=== PATIENT | female | born 2000 | race American Indian/Alaskan Native ===

== ENCOUNTER 2020-06-20 02:21 | Outpatient (CLI) | payer MEDICAID ==
[2020-06-20 02:42] VITALS: BP 107/67
--- NOTE | 2020-06-20 04:57 | Ultrasound Report ---
ULTRASOUND BIOPHYSICAL PROFILE INDICATION: wellbeing. COMPARISON: None available. FINDINGS: BREATHING MOVEMENT = 2 GROSS BODY MOVEMENT = 2 TONE = 2 QUALITATIVE AMNIOTIC FLUID VOLUME = 2 TOTAL BIOPHYSICAL SCORE = 11/07 AMNIOTIC FLUID INDEX (cm) = 10.6 PRESENTATION: Cephalic. HEART RATE (beats per minute): 155 IMPRESSION: 1. biophysical profile = 11/07 Signer Name: Ron Ang MD Signed: 06/20/2020 4:53 AM Workstation Name: [id number]
[2020-06-20] MEDS ORDERED: LACTATED RINGERS 500 ML IV SCH (05:00)
[2020-06-20] MEDS ORDERED: D5W/LACTATED RINGERS 1,000 ML IV SCH (05:00)
[2020-06-20] MEDS ORDERED: LACTATED RINGERS 1,000 ML IV SCH (06:05)
[2020-06-20 06:40] LABS: Amphetamine Screen,Urine PRESUMPTIVE NEGATIVE; Benzodiazepines Screen,Urine PRESUMPTIVE NEGATIVE; Cannabinoid Screen,Urine PRESUMPTIVE NEGATIVE; Cocaine Screen,Urine PRESUMPTIVE NEGATIVE; Methadone Screen,Urine PRESUMPTIVE NEGATIVE; Opiate Screen,Urine PRESUMPTIVE NEGATIVE
[2020-06-20] MEDS ORDERED: LACTATED RINGERS 1,000 ML ONE (07:20)
== END 2020-06-20 07:54 | disposition home or self-care (01) ==
LOC: TRG 02:21 → APU 02:24 → TRG 07:54
PROVIDERS: ATTEND Obstetrics & Gynecology
DX: O62.9 Abnormality of forces of labor, unspecified (principal); Z3A.38 38 weeks gestation of pregnancy; Z87.891 Personal history of nicotine dependence
CPT/HCPCS: 59025; 76815; 76819; 80307; 96360; 96361; J7121

== ENCOUNTER 2020-06-24 07:58 | Inpatient (IN) | payer MEDICAID ==
--- NOTE | 2020-06-24 08:36 | History and Physical Report ---
History of Present Illness Date of examination: 06/24/20 (ROM @ 0630 this AM) Chief complaint: my water broke History of present illness: EDC Confirmation: 06/29/2020 Gestational Age: 39 2/7 weeks Past History : 2 Term Births: 0 Premature Births: 0 Living Children: 0 Para: 0 Mult. Births: 0 Prev : 0 Prev. attempt? 0 Aborta: 1 Elect. Ab: 1 Spont. Ab: 0 Ectopics: 0 # 1 Delivery type: EAB Past Medical History: Negative Past Medical History Past Surgical History: ear tubes Past Medical History Surgery (Non-social media marketer): ear tubes Family Hx: lupus; MGM, sister Social Hx: Single denies ETOH/Drugs/Smoking Dogs Infection History Hx of STD: none HIV Risk Eval: low risk Hepatitis B Risk Eval: low risk Personal hx. of genital herpes: no Partner hx. of genital herpes: no Rash, Viral, or Febrile illness since last LMP? no Varicella/Chicken Pox Status: Unknown Genetic History Congenital Heart Defect: Mom: no Dad: no Loc Disease: Mom: no Dad: no Thalassemia Mom: no Dad: no Neural Tube Defect Mom: no Dad: no Down's Syndrome Mom: no Dad: no Bo-Sachs Mom: no Dad: no Sickle Cell Disease/Trait Mom: no Dad: no Hemophilia Mom: no Dad: no Muscular Dystrophy Mom: no Dad: no Cystic Fibrosis Mom: no Dad: no Keenan Chorea Mom: no Dad: no Mental Retardation Mom: no Dad: no Fragile X Mom: no Dad: no Other Genetic/Chromosomal Disorder Mom: no Dad: no Child w/other defect Mom: no Dad: no Enviromental Exposures Xray Exposure: no Medication, drug, or alcohol use since LMP: no Chemical/Other Exposure: no Exposure to Cat Liter: no Hx of Parvovirus (Fifth Disease): no Occupational Exposure to Children: none Active Medications (reviewed today): None Current Allergies (reviewed today): No known allergies Past History - Obstetrical History Expected Date of Delivery: 06/29/20 Actual Gestation: 39 Week(s) 2 Day(s) : 2 Para: 0 Hx # Term Pregnancies: 0 Number of Pregnancies: 0 Spontaneous Abortions: 0 Induced : 1 Number of Living Children: 0 Medications and Allergies Allergies Allergy/AdvReac Type Severity Reaction Status Date / Time No Known Allergies Allergy Verified 02/02/17 07:16 Home Medications Medication Instructions Recorded Confirmed Last Taken Type Fluconazole (Nf) [Diflucan TAB] 150 mg PO ONCE #1 tablet 02/02/17 Unknown Rx Ibuprofen 400 mg PO TID PRN #20 tablet 02/02/17 Unknown Rx Ondansetron [Zofran TAB] 4 mg PO Q8HR PRN #4 tablet 02/02/17 Unknown Rx cephALEXin [Keflex] 500 mg PO BID #14 capsule 02/02/17 Unknown Rx Review of Systems All systems: negative - Vital Signs Vital signs: Vital Signs Pulse Ox 80 L 06/20/20 07:45 Temp Pulse Resp BP Pulse Ox 98.4 F 96 H 15 114/68 100 06/24/20 08:15 06/24/20 08:29 06/24/20 08:15 06/24/20 08:19 06/24/20 08:29 - Physical Exam Breasts: Cardiovascular: Regular rate, Normal S1, Normal S2 Lungs: Positive: Normal air movement Abdomen: Positive: normal appearance, soft, normal bowel sounds. Negative: distention, tenderness Genitourinary (Female): Positive: normal external genitalia Vulva: both: normal Vagina: Positive: normal moisture. Negative: discharge Cervix: Negative: lesion, discharge Uterus: Positive: normal size, normal contour Adnexa: both: normal Anus/Rectum: Positive: normal perianal skin, heme negative. Negative: rectal mass, hemorrhoids Extremities: Deep Tendon Reflex Grade: Normal +2 - Obstetrical FHR: category 1 Uterine Contraction Monitor Mode: External Cervical Dilatation: 1 (resource specialist [email or web address]) Cervical Effacement Percentage: 60 station: -2 Uterine Contraction Pattern: Irregular Uterine Tone Measurement Phase: Resting Uterine Contraction Intensity: Mild Results Result Diagrams: 06/24/20 08:45 All other labs normal. GBS Negative HBsAg Screen Negative Negative *1 RPR Non Reactive Non Reactive *2 Rubella Antibodies, IgG 4.28 index Immune >0.99 *3 Non-immune <0.90 Equivocal 0.90 - 0.99 Immune >0.99 ABO Grouping O *4 Rh Factor Positive *5 Please note: Prior records for this patient's ABO / Rh type are not available for additional verification. Antibody Screen Negative Negative *6 WBC 7.8 x10E3/uL 3.4-10.8 *7 RBC [L] 3.55 x10E6/uL 3.77-5.28 *8 Hemoglobin 11.3 g/dL 11.1-15.9 *9 Hematocrit 34.3 % 34.0-46.6 *10 MCV 97 fL 79-97 *11 MCH 31.8 pg 26.6-33.0 *12 MCHC 32.9 g/dL 31.5-35.7 *13 RDW 12.3 % 11.7-15.4 *14 Platelets 294 x10E3/uL 150-450 *15 Neutrophils 68 % Not Estab. *16 Lymphs 25 % Not Estab. *17 Monocytes 7 % Not Estab. *18 Eos 0 % Not Estab. *19 Basos 0 % Not Estab. *20 ! Immature Cells <No Reported Value> *21 Neutrophils (Absolute) 5.3 x10E3/uL 1.4-7.0 *22 Lymphs (Absolute) 1.9 x10E3/uL 0.7-3.1 *23 Monocytes(Absolute) 0.5 x10E3/uL 0.1-0.9 *24 Eos (Absolute) 0.0 x10E3/uL 0.0-0.4 *25 Baso (Absolute) 0.0 x10E3/uL 0.0-0.2 *26 ! Immature Granulocytes 0 % Not Estab. *27 ! Immature Grans (Abs) 0.0 x10E3/uL 0.0-0.1 *28 ! NRBC <No Reported Value> *29 Hematology Comments: <No Reported Value> *30 Tests: (2) AFP Tetra ([id number]) ! Results Report *31 ! Test Results: *Screen Negative* *32 ! Gest. Age on Collection Date 15.3 WEEKS *33 ! Gestat. Age Based On Ultrasound *34 15.3 on 01/08/2020 Tests: (3) HB Solu + Rflx Fra (275737) Hemoglobin (Hgb) Solubility Negative Negative *55 Tests: (4) HIV Ag/Ab with Reflex ([id number]) HIV Screen 4th Generation wRfx Non Reactive Non Reactive *56 Tests: (5) HCV Ab w/Rflx to Verification ([id number]) ! HCV Ab <0.1 s/co ratio 0.0-0.9 *57 Tests: (6) Comment: ([id number]) ! Comment: [facility] *58 Non reactive HCV antibody screen is consistent with no HCV infection, unless recent infection is suspected or other evidence exists to indicate HCV infection. Tests: (7) Urine Culture, Routine ([id number]) Urine Culture, Routine Final report *59 Tests: (8) Result ([id number]) ! Result 1 No growth *60 Assessment and Plan 19yo @ 39 weeks SROM clear fluid GBS negative All orders in EMR - Patient Problems (1) Spontaneous rupture of membranes Onset Date: ~06/24/20 Current Visit: Yes Status: Acute Plan to address problem: pt states ROM this AM 0645 Clear fluid (2) 39 weeks gestation of Onset Date: ~06/24/20 Current Visit: Yes Status: Acute
[2020-06-24] MEDS ORDERED: ACETAMINOPHEN 325 MG TAB PO PRN (09:00)
[2020-06-24] MEDS ORDERED: ePHEDrine SULFATE 50 MG/1 ML INJ IV PRN (09:00)
[2020-06-24] MEDS ORDERED: LACTATED RINGERS 1,000 ML IV SCH (09:00)
[2020-06-24] MEDS ORDERED: fentaNYL 100 MCG/2 ML INJ IV PRN (09:00)
[2020-06-24] MEDS ORDERED: TERBUTALINE 1 MG/1 ML INJ SUB-Q PRN (09:00)
[2020-06-24] MEDS ORDERED: ONDANSETRON 4 MG/2 ML INJ IV PRN (09:00)
[2020-06-24] MEDS ORDERED: LIDOCAINE (2%) 20 MG/1 ML VIAL 20 ML MDV INFILTRATI SCH (09:00)
[2020-06-24] MEDS ORDERED: OXYTOCIN DRIP 30 UNITS/500 ML BAG IV SCH ×2 (09:00)
[2020-06-24] MEDS ORDERED: MINERAL OIL 30 ML ORAL LIQD PO PRN (09:00)
[2020-06-24 09:15] LABS: Hematocrit 29.1 % (30.3-42.9); Hemoglobin 9.6 gm/dl (10.1-14.3); Mean Corpuscular HGB Conc 33 % (30-34); Mean Corpuscular Volume 86 fl (79-97); Platelet Count 203 K/mm3 (140-440); Red Blood Count 3.39 M/mm3 (3.65-5.03); Red Cell Distribution Width 15.8 % (13.2-15.2)
--- NOTE | 2020-06-24 22:11 | Progress Note ---
Assessment and Plan - Patient Problems (1) 39 weeks gestation of Onset Date: ~06/24/20 Current Visit: Yes Status: Acute (2) Spontaneous rupture of membranes Onset Date: ~06/24/20 Current Visit: Yes Status: Acute Plan to address problem: still not in active labor but appears to be progressing Epidural, continue pitocin and expectant management Question encouraged and answered, she voiced understanding and agrees with POC Subjective - Subjective Date of service: 06/24/20 Principal diagnosis: SROM, early labor Patient reports: contractions Objective - Vital Signs Vital Signs: Vital Signs - 12hr 06/24/20 06/24/20 06/24/20 14:32 18:20 21:19 Temperature 98.3 F Pulse Rate 93 H 88 Blood Pressure 98/54 110/51 - Exam Breasts: deferred Cardiovascular: Regular rate Lungs: Normal air movement Abdomen: Absent: tenderness Vulva: both: normal Uterus: Present: fundal height above umbilicus. Absent: tenderness FHR: category 1 Uterine Contraction Monitor Mode: External Cervical Dilatation: 3 Cervical Effacement Percentage: 60 station: -2, forebag palpated Uterine Contraction Pattern: Regular Extremities: normal - Labs Labs: Abnormal Labs 06/24/20 08:45 RBC 3.39 L Hgb 9.6 L Hct 29.1 L RDW 15.8 H Laboratory Results - last 24 hr 06/24/20 06/24/20 06/24/20 08:45 08:45 09:00 WBC 8.1 RBC 3.39 L Hgb 9.6 L Hct 29.1 L MCV 86 MCH 28 MCHC 33 RDW 15.8 H Plt Count 203 Syphilis IgG Antibody Nonreactive Coronavirus (PCR) Blood Type O POSITIVE Antibody Screen Negative 06/24/20 09:30 WBC RBC Hgb Hct MCV MCH MCHC RDW Plt Count Syphilis IgG Antibody Coronavirus (PCR) Negative Blood Type Antibody Screen
[2020-06-25] MEDS ORDERED: fentaNYL-BUPIV 2 MCG/ML-0.125% 200 MCG/100 ML BAG EPIDURAL ONE (00:38)
[2020-06-25] MEDS ORDERED: AMPICILLIN/NS 2 GM/100 ML 2 GM/100 ML BAG IV ONE (01:07)
--- NOTE | 2020-06-25 01:07 | Progress Note ---
Assessment and Plan - Patient Problems (1) 39 weeks gestation of Onset Date: ~06/24/20 Current Visit: Yes Status: Acute Plan to address problem: Continue expectant management will start Ampicillin empirically for prolonged ROM (2) Spontaneous rupture of membranes Onset Date: ~06/24/20 Current Visit: Yes Status: Acute Subjective - Subjective Date of service: 06/25/20 Principal diagnosis: SROM, early labor Patient reports: contractions, no new complaints Objective - Vital Signs Vital Signs: Vital Signs - 12hr 06/24/20 06/24/20 06/24/20 14:32 18:20 21:19 Temperature 98.3 F Pulse Rate 93 H 88 Respiratory Rate Blood Pressure 98/54 110/51 O2 Sat by Pulse Oximetry 06/24/20 06/24/20 06/24/20 22:04 22:20 23:04 Temperature 98.3 F Pulse Rate Respiratory 16 18 16 Rate Blood Pressure O2 Sat by Pulse Oximetry 06/24/20 06/24/20 06/24/20 23:05 23:06 23:08 Temperature Pulse Rate 110 H 112 H 88 Respiratory Rate Blood Pressure 104/55 O2 Sat by Pulse 99 94 Oximetry 06/24/20 06/24/20 06/24/20 23:10 23:15 23:20 Temperature Pulse Rate 84 81 87 Respiratory Rate Blood Pressure O2 Sat by Pulse 100 100 100 Oximetry 06/24/20 06/24/20 06/24/20 23:23 23:24 23:25 Temperature Pulse Rate 71 68 69 Respiratory Rate Blood Pressure 213/83 109/66 O2 Sat by Pulse 100 Oximetry 06/24/20 06/24/20 06/24/20 23:26 23:30 23:34 Temperature Pulse Rate 62 61 70 Respiratory Rate Blood Pressure 110/71 113/52 O2 Sat by Pulse 100 Oximetry 06/24/20 06/24/20 06/24/20 23:35 23:40 23:42 Temperature Pulse Rate 78 79 61 Respiratory Rate Blood Pressure 101/55 108/57 O2 Sat by Pulse 96 100 Oximetry 06/24/20 06/24/20 06/24/20 23:45 23:46 23:50 Temperature Pulse Rate 63 62 71 Respiratory Rate Blood Pressure 118/64 O2 Sat by Pulse 99 99 Oximetry 06/24/20 06/24/20 06/24/20 23:51 23:55 23:57 Temperature Pulse Rate 74 66 71 Respiratory Rate Blood Pressure 119/63 123/63 O2 Sat by Pulse 99 Oximetry 06/25/20 06/25/20 06/25/20 00:00 00:02 00:05 Temperature Pulse Rate 69 69 100 H Respiratory Rate Blood Pressure 124/63 O2 Sat by Pulse 98 99 Oximetry 06/25/20 06/25/20 06/25/20 00:06 00:10 00:12 Temperature Pulse Rate 102 H 70 63 Respiratory Rate Blood Pressure 114/56 114/64 O2 Sat by Pulse 99 Oximetry 06/25/20 06/25/20 06/25/20 00:15 00:20 00:25 Temperature Pulse Rate 75 62 63 Respiratory Rate Blood Pressure O2 Sat by Pulse 100 100 100 Oximetry 06/25/20 06/25/20 06/25/20 00:29 00:30 00:35 Temperature Pulse Rate 59 L 76 94 H Respiratory Rate Blood Pressure 106/59 O2 Sat by Pulse 100 100 Oximetry 06/25/20 06/25/20 06/25/20 00:40 00:44 00:45 Temperature Pulse Rate 69 65 66 Respiratory 18 Rate Blood Pressure 106/66 O2 Sat by Pulse 100 100 Oximetry 06/25/20 06/25/20 06/25/20 00:50 00:55 00:58 Temperature Pulse Rate 67 68 88 Respiratory Rate Blood Pressure 126/80 O2 Sat by Pulse 100 100 Oximetry 06/25/20 01:00 Temperature Pulse Rate 83 Respiratory Rate Blood Pressure O2 Sat by Pulse 100 Oximetry - Exam Breasts: deferred Cardiovascular: Regular rate Lungs: Normal air movement Abdomen: Absent: tenderness Vulva: both: normal Uterus: Present: fundal height above umbilicus. Absent: tenderness FHR: category 2 (early decels noted, +accel with scalp stim. ISE placed good variability) Uterine Contraction Monitor Mode: External Cervical Dilatation: 4 Cervical Effacement Percentage: 60 station: -1, forebag ROM, mec noted. Verbal consent obtained ISE placed w/o difficul Uterine Contraction Frequency (min): 2-3 mintes Uterine Contraction Pattern: Regular - Labs Labs: Abnormal Labs 06/24/20 08:45 RBC 3.39 L Hgb 9.6 L Hct 29.1 L RDW 15.8 H Laboratory Results - last 24 hr 06/24/20 06/24/20 06/24/20 08:45 08:45 09:00 WBC 8.1 RBC 3.39 L Hgb 9.6 L Hct 29.1 L MCV 86 MCH 28 MCHC 33 RDW 15.8 H Plt Count 203 Syphilis IgG Antibody Nonreactive Coronavirus (PCR) Blood Type O POSITIVE Antibody Screen Negative 06/24/20 09:30 WBC RBC Hgb Hct MCV MCH MCHC RDW Plt Count Syphilis IgG Antibody Coronavirus (PCR) Negative Blood Type Antibody Screen
[2020-06-25] MEDS ORDERED: BICITRA ORAL LIQD 30ML ONE (02:59)
[2020-06-25] MEDS ORDERED: METOCLOPRAMIDE 10 MG/2 ML INJ ONE (02:59)
[2020-06-25] MEDS ORDERED: FAMOTIDINE 20 MG/2 ML INJ IV ONE (03:00)
[2020-06-25] MEDS ORDERED: METHYLERGONOVINE MALEATE 0.2 MG/ML VIAL IM PRN (03:22)
[2020-06-25] MEDS ORDERED: miSOPROStol 200 MCG TAB PR PRN (03:22)
[2020-06-25] MEDS ORDERED: CARBOPROST TROMETHAMINE 250 MCG/1 ML INJ IM PRN (03:22)
[2020-06-25] MEDS ORDERED: DIPHENOXYLATE/ATROPINE TAB PO PRN (03:22)
--- NOTE | 2020-06-25 03:22 | Progress Note ---
Assessment and Plan - Patient Problems (1) 39 weeks gestation of Onset Date: ~06/24/20 Current Visit: Yes Status: Acute (2) Spontaneous rupture of membranes Onset Date: ~06/24/20 Current Visit: Yes Status: Acute (3) Arrest of dilation, delivered, current hospitalization Current Visit: Yes Status: Acute Plan to address problem: intermittent late decels Options referred will proceed with c/s delivery. Risk associated with delivery were discussed, including but not limited to, bleeding that may require blood transfusion, infection that may be life threatening, injury to adjacent organs specifically bowel or bladder that may require further surgeries, or major vascular injury. She was also informed that when she has had a delivery she may require repeat deliveries for all subsequent pregnancies. Questions were encouraged and answered, consents were reviewed and signed. Patient voiced understanding and desires to proceed with delivery. Subjective - Subjective Date of service: 06/25/20 Principal diagnosis: SROM, early labor, failure to dilate, occasional late decel Patient reports: contractions, no new complaints Objective - Vital Signs Vital Signs: Vital Signs - 12hr 06/24/20 06/24/20 06/24/20 18:20 21:19 22:04 Temperature 98.3 F Pulse Rate 88 Respiratory 16 Rate Blood Pressure 110/51 O2 Sat by Pulse Oximetry 06/24/20 06/24/20 06/24/20 22:20 23:04 23:05 Temperature 98.3 F Pulse Rate 110 H Respiratory 18 16 Rate Blood Pressure O2 Sat by Pulse 99 Oximetry 06/24/20 06/24/20 06/24/20 23:06 23:08 23:10 Temperature Pulse Rate 112 H 88 84 Respiratory Rate Blood Pressure 104/55 O2 Sat by Pulse 94 100 Oximetry 06/24/20 06/24/20 06/24/20 23:15 23:20 23:23 Temperature Pulse Rate 81 87 71 Respiratory Rate Blood Pressure 213/83 O2 Sat by Pulse 100 100 Oximetry 06/24/20 06/24/20 06/24/20 23:24 23:25 23:26 Temperature Pulse Rate 68 69 62 Respiratory Rate Blood Pressure 109/66 110/71 O2 Sat by Pulse 100 Oximetry 06/24/20 06/24/20 06/24/20 23:30 23:34 23:35 Temperature Pulse Rate 61 70 78 Respiratory Rate Blood Pressure 113/52 O2 Sat by Pulse 100 96 Oximetry 06/24/20 06/24/20 06/24/20 23:40 23:42 23:45 Temperature Pulse Rate 79 61 63 Respiratory Rate Blood Pressure 101/55 108/57 O2 Sat by Pulse 100 99 Oximetry 06/24/20 06/24/20 06/24/20 23:46 23:50 23:51 Temperature Pulse Rate 62 71 74 Respiratory Rate Blood Pressure 118/64 119/63 O2 Sat by Pulse 99 Oximetry 06/24/20 06/24/20 06/25/20 23:55 23:57 00:00 Temperature Pulse Rate 66 71 69 Respiratory Rate Blood Pressure 123/63 O2 Sat by Pulse 99 98 Oximetry 06/25/20 06/25/20 06/25/20 00:02 00:05 00:06 Temperature Pulse Rate 69 100 H 102 H Respiratory Rate Blood Pressure 124/63 114/56 O2 Sat by Pulse 99 Oximetry 06/25/20 06/25/20 06/25/20 00:10 00:12 00:15 Temperature Pulse Rate 70 63 75 Respiratory Rate Blood Pressure 114/64 O2 Sat by Pulse 99 100 Oximetry 06/25/20 06/25/20 06/25/20 00:20 00:25 00:29 Temperature Pulse Rate 62 63 59 L Respiratory Rate Blood Pressure 106/59 O2 Sat by Pulse 100 100 Oximetry 06/25/20 06/25/20 06/25/20 00:30 00:35 00:40 Temperature Pulse Rate 76 94 H 69 Respiratory 18 Rate Blood Pressure O2 Sat by Pulse 100 100 100 Oximetry 06/25/20 06/25/20 06/25/20 00:44 00:45 00:50 Temperature Pulse Rate 65 66 67 Respiratory Rate Blood Pressure 106/66 O2 Sat by Pulse 100 100 Oximetry 06/25/20 06/25/20 06/25/20 00:55 00:58 01:00 Temperature 97.6 F Pulse Rate 68 88 83 Respiratory 16 Rate Blood Pressure 126/80 O2 Sat by Pulse 100 100 Oximetry 06/25/20 06/25/20 06/25/20 01:05 01:10 01:15 Temperature Pulse Rate 66 64 80 Respiratory Rate Blood Pressure O2 Sat by Pulse 100 100 100 Oximetry 06/25/20 06/25/20 06/25/20 01:20 01:25 01:30 Temperature Pulse Rate 61 66 68 Respiratory Rate Blood Pressure O2 Sat by Pulse 100 100 100 Oximetry 06/25/20 06/25/20 06/25/20 01:35 01:38 01:40 Temperature Pulse Rate 68 70 70 Respiratory Rate Blood Pressure 111/63 O2 Sat by Pulse 100 100 Oximetry 06/25/20 06/25/20 06/25/20 01:45 01:50 01:55 Temperature Pulse Rate 90 66 69 Respiratory Rate Blood Pressure O2 Sat by Pulse 100 99 100 Oximetry 06/25/20 06/25/20 06/25/20 02:00 02:05 02:10 Temperature Pulse Rate 66 73 68 Respiratory Rate Blood Pressure 93/53 O2 Sat by Pulse 100 100 100 Oximetry 06/25/20 06/25/20 06/25/20 02:15 02:20 02:25 Temperature Pulse Rate 73 67 72 Respiratory Rate Blood Pressure O2 Sat by Pulse 100 100 100 Oximetry 06/25/20 06/25/20 06/25/20 02:30 02:35 02:40 Temperature Pulse Rate 82 74 82 Respiratory Rate Blood Pressure O2 Sat by Pulse 100 99 100 Oximetry 06/25/20 06/25/20 06/25/20 02:41 02:45 02:49 Temperature Pulse Rate 78 77 73 Respiratory Rate Blood Pressure 92/55 99/57 O2 Sat by Pulse 100 Oximetry 06/25/20 06/25/20 06/25/20 02:50 02:55 03:00 Temperature Pulse Rate 75 79 100 H Respiratory Rate Blood Pressure O2 Sat by Pulse 100 100 100 Oximetry 06/25/20 06/25/20 06/25/20 03:03 03:05 03:10 Temperature Pulse Rate 98 H 120 H 96 H Respiratory Rate Blood Pressure O2 Sat by Pulse 89 100 99 Oximetry - Labs Labs: Abnormal Labs 06/24/20 08:45 RBC 3.39 L Hgb 9.6 L Hct 29.1 L RDW 15.8 H Laboratory Results - last 24 hr 06/24/20 06/24/20 06/24/20 08:45 08:45 09:00 WBC 8.1 RBC 3.39 L Hgb 9.6 L Hct 29.1 L MCV 86 MCH 28 MCHC 33 RDW 15.8 H Plt Count 203 Syphilis IgG Antibody Nonreactive Coronavirus (PCR) Blood Type O POSITIVE Antibody Screen Negative 06/24/20 09:30 WBC RBC Hgb Hct MCV MCH MCHC RDW Plt Count Syphilis IgG Antibody Coronavirus (PCR) Negative Blood Type Antibody Screen
[2020-06-25] MEDS ORDERED: BUPIVACAINE/PF (0.5%) 5 MG/1 ML 30 ML VIAL INFILTRATI ONE (03:48)
[2020-06-25] MEDS ORDERED: dexAMETHasone 20 MG/5 ML VIAL ONE (03:48)
[2020-06-25] MEDS ORDERED: ONDANSETRON 4 MG/2 ML INJ ONE ×2 (03:55)
--- NOTE | 2020-06-25 04:24 | Operative Report ---
Operative Report Operative Report: Date of operation: 06/25/2020 Pre-operative diagnosis: 1. 39 1/7 weeks gestational age 2. Failure to dilate 3. Prolonged rupture of number 4. BMI 32.6 kg/m 5. Meconium stained amniotic fluid 6. Occasional late deceleration Post-operative diagnosis: 1. 39 1/7 weeks gestational age 2. Failure to dilate 3. Prolonged rupture of number 4. BMI 32.6 kg/m 5. Meconium stained amniotic fluid 6. Occasional late deceleration 7. Nuchal cord x1 Procedure name(s): Primary low transverse uterine incision Surgeon: Violetta Solis MD Health Assessment And Treatment Teacher: Regina Douglass CST Anesthesia: Epidural EBL: 700 mL Urine output: 300 mL of clear urine out at the end of the procedure Fluids: 900 mL Findings: Liveborn male infant weight 8 Lbs. 5 oz. Apgars of 8 and 9 at one and 5 minutes Procedure: Patient was taking to the operating room. Epidural l anesthesia was bolused. Patient was then prepped and draped in the usual sterile fashion Timeout was performed. Once an appropriate level of anesthesia was noted, a Pfannenstiel incision was made and extended the fascia which was incised and extended lateral direction. The overlying fascia was sharply dissected away from the underlying rectus muscles in the superior inferior direction. The midline was entered bluntly. Bladder blade was placed. Vesicouterine fold was incised with blunt dissection bladder flap was created. A transverse incision was made in the lower uterine segment and extended superolateral direction with finger fractionation. Light meconium stained fluid was noted. was delivered from the cephalic ROP position, with spontaneous cry and excellent tone. Mouth and nose bulb suctioned. Cord was do ubly clamped and cut infant was given to the resuscitation team present. Placenta was delivered. The uterus was exteriorized and cleaned of any further placental tissue and products of conception. Uterine incision was approximated using 0 Vicryl in a running interlocking stitch followed by further suture of 0 Vicryl in imbricating fashion. When hemostasis was noted the uterus was allowed back in the pelvic cavity. Pelvis was irrigated with warm normal saline. Once hemostasis was noted the rectus muscles were approximated using 0 Vicryl interrupted simple stitches 3. Once hemostasis was noted the fascia was approximated using 0 Vicryl simple running stitch. The incision was irrigated with warm saline. Once hemostasis as noted, skin was approximated using 4-0 Vicryl on a Surya needle in a subcuticular manner. Counts were correct x3. Patient tolerated the procedure well, she was taken to recovery room in stable condition.
[2020-06-25] MEDS ORDERED: ACETAMINOPHEN 500 MG TAB PO PRN (04:37)
[2020-06-25] MEDS ORDERED: AMPICILLIN/NS 1 GM/50 ML 1 GM/50 ML BAG IV SCH (06:00)
[2020-06-25] MEDS ORDERED: LANOLIN/ZINC/DIMETHICONE (LANSINOH) 7 GM TP PRN (06:47)
[2020-06-25] MEDS ORDERED: WITCH HAZEL/ GLYCERIN PAD TP PRN (06:47)
[2020-06-25] MEDS ORDERED: D5W/LACTATED RINGERS 1,000 ML IV SCH (06:47)
[2020-06-25] MEDS ORDERED: MORPHINE 2 MG/1 ML INJ IV PRN (06:47)
[2020-06-25] MEDS ORDERED: OXYTOCIN DRIP 30 UNITS/500 ML BAG IV SCH (06:47)
[2020-06-25] MEDS ORDERED: NALOXONE 0.4 MG/1 ML INJ IV PRN (06:47)
[2020-06-25] MEDS: ceFAZolin/NS 1 GM/50 ML 1 GM/50 ML BAG IV SCH ×2 (08:05→15:52)
--- NOTE | 2020-06-25 08:38 | Anesthesia Day of Surgery ---
Anesthesia Day of Surgery - Day of Surgery Patient Examined: Yes Patient H&P Reviewed: Yes Patient is NPO: Yes Beta Blockers: No Cardiac Clearance: No Pulmonary Clearance: No Mani's Test: N/A
--- NOTE | 2020-06-25 08:39 | Anesthesia Consultation ---
Anesthesia Consult and Med Hx Date of service: 06/25/20 - Airway Anesthetic Teeth Evaluation: Poor ROM Head & Neck: Adequate Mental/Hyoid Distance: Adequate Mallampati Class: Class II Intubation Access Assessment: Probably Good - Pulmonary Exam CTA: Yes - Cardiac Exam Cardiac Exam: RRR - Pre-Operative Health Status ASA Pre-Surgery Classification: ASA3 Proposed Anesthetic Plan: Epidural - Pulmonary Hx Smoking: No Hx Asthma: No Hx Respiratory Symptoms: No SOB: No COPD: No Home Oxygen Therapy: No Hx Pneumonia: No Hx Sleep Apnea: No - Cardiovascular System Hx Hypertension: No Hx Coronary Artery Disease: No Hx Heart Attack/AMI: No Hx Angina: No Hx Percutaneous Transluminal Coronary Angioplasty (PTCA): No Hx Cardia Arrhythmia: No Hx Pacemaker: No Hx Internal Defibrillator: No Hx Valvular Heart Disease: No Hx Heart Murmur: No Hx Peripheral Vascular Disease: No - Central Nervous System Hx Neuromuscular Disorder: No Hx Seizures: No CVA: No Hx Back Pain: No Hx Psychiatric Problems: No - Gastrointestinal Hx Ulcer: No Hx Gastroesophageal Reflux Disease: No - Endocrine Hx Renal Disease: No Hx End Stage Renal Disease: No Hx Cirrhosis: No Hx Liver Disease: No Hx Insulin Dependent Diabetes: No Hx Non-Insulin Dependent Diabetes: No Hx Thyroid Disease: No Hx Hypothyroidism: No Hx Hyperthyroidism: No - Hematic Hx Anemia: Yes (during pregnacy) Hx Sickle Cell Disease: No - Other Systems Hx Alcohol Use: No Hx Substance Use: No Hx Cancer: No Hx Obesity: Yes
--- NOTE | 2020-06-25 08:40 | Progress Note ---
Spinal Anesthesia Block - Spinal Anesthesia Block Performed by:: SHAYLA BALDWIN Procedure: Patient is requesting a laboring epidural for laboring pain. Patient IDed, H&P reviewed, all questions and concerns were answered, and consent was signed. Timeout was performed at bedside. Patient in sitting position. Sterile prep and drape was performed. [3] ml of 1% lidocaine skin wheal at L[3]- L [4]. 18- gauge Tuohy epidural needle was advanced to loss of resistance with saline technique 8cm. Negative CSF negative blood. Epidural catheter advanced to [12] centimeters. [NEGATIVE] Aspiration [NEGATIVE] test dose. Sterile dressing applied. Patient tolerated procedure.
--- NOTE | 2020-06-25 08:41 | Post Anesthesia Evaluation ---
- Post Anesthesia Evaluation Patient Participated: Yes Airway Patent: Yes Stable Respiratory Function: Yes Nausea/Vomiting: No Temp > 96.8F: Yes Pain Manageable: Yes Adequeate Hydration: Yes Anesthesia Complications: No Block Receding Appropriately: Yes Patient on Ventilator: No
[2020-06-25] MEDS: KETOROLAC 30 MG/1 ML INJ IV SCH ×3 (10:27→22:31)
[2020-06-25] MEDS ORDERED: KETOROLAC 30 MG/1 ML INJ ONE (14:00)
[2020-06-25 18:29] LABS: Hematocrit 26.9 % (30.3-42.9); Hemoglobin 8.6 gm/dl (10.1-14.3)
[2020-06-26] MEDS: oxyCODONE /ACETAMINOPHEN 5-325MG TAB PO PRN ×3 (05:38→18:21)
[2020-06-26] MEDS ORDERED: TETANUS,DIPH,PERTUSS(ACELL) VACCINE 0.5 ML SYRINGE IM ONE (06:00)
[2020-06-26] MEDS: FERROUS SULFATE 325 MG TAB PO SCH ×2 (12:23→22:34)
--- NOTE | 2020-06-26 12:37 | Progress Note ---
Assessment and Plan Doing well, no complaints. Plan of care discussed. Questions encouraged and answered. - Patient Problems (1) delivery delivered Current Visit: Yes Status: Acute (2) Anemia Current Visit: Yes Status: Acute Qualifiers: Other causes of anemia: acute posthemorrhagic Plan to address problem: Asymptomatic Denies lightheadedness or dizziness Will start FeSO4 (3) 39 weeks gestation of Onset Date: ~06/24/20 Current Visit: Yes Status: Resolved (4) Spontaneous rupture of membranes Onset Date: ~06/24/20 Current Visit: Yes Status: Resolved (5) Arrest of dilation, delivered, current hospitalization Current Visit: Yes Status: Resolved Subjective - Subjective Date of service: 06/26/20 Principal diagnosis: POD#1 s/p C/S FTP, prolonged ROM Interval history: Standing in room, no complaint, minimal bleeding. Patient reports: appetite normal, voiding normally, pain well controlled, flatus, ambulating normally Objective - Vital Signs Latest vital signs: Vital Signs Temp Pulse Resp BP BP Pulse Ox 06/26/20 08:58 97.5 F L 84 18 106/56 100 06/25/20 23:46 98.0 F 72 20 113/72 100 06/25/20 20:00 98.0 F 86 20 102/57 99 06/25/20 16:25 97.9 F 90 18 101/54 99 06/25/20 16:00 97.9 F 100 H 18 101/54 06/25/20 13:36 97.9 F 18 96/58 Intake and Output 06/25/20 06/26/20 06/26/20 22:59 06:59 14:59 Intake Total 360 480 240 Output Total 1200 Balance -840 480 240 Intake: Oral 360 120 240 Intake, Free Water 360 Output: Urine 1200 Indwelling Catheter 900 Void 300 Other: Total, Intake Amount 360 120 240 Total, Output Amount 300 # Voids Void 1 1 1 - Exam Breasts: Present: normal. Absent: engorged Cardiovascular: Present: Regular rate Lungs: Present: Clear to auscultation, Normal air movement Abdomen: Present: soft, normal bowel sounds. Absent: tenderness Extremities: Present: normal Incision: Present: normal, dry, intact - Labs Labs: Abnormal lab results 06/25/20 Range/Units 18:14 Hgb 8.6 L (10.1-14.3) gm/dl Hct 26.9 L (30.3-42.9) %
[2020-06-26] MEDS: IBUPROFEN 800 MG TAB PO PRN (20:09)
[2020-06-27] MEDS: oxyCODONE /ACETAMINOPHEN 5-325MG TAB PO PRN (01:55)
[2020-06-27] MEDS: IBUPROFEN 800 MG TAB PO PRN (07:34)
[2020-06-27] MEDS: FERROUS SULFATE 325 MG TAB PO SCH (10:04)
--- NOTE | 2020-06-27 12:36 | Discharge Summary ---
Providers - Providers Date of Admission: 06/24/20 07:59 Date of discharge: 06/27/20 Attending physician: OLESYA SMALLS 06/25/20 06:47 Consult to Emergency Service Restorer [CONS] Routine Reason For Exam: Primary care physician: OLESYA SMALLS Hospitalization Condition: Good Procedures: C/S Hospital course: Patient presented with SROM, she progressed to 4cm then failed to dilate further with occasional late decelerations. Her PO course was unremarkable Disposition: DC-01 TO HOME OR SELFCARE Final Discharge Diagnosis (Prints w/discharge instructions): C/S - Discharge Diagnoses (1) delivery delivered Status: Acute (2) Anemia Status: Acute Qualifiers: Other causes of anemia: acute posthemorrhagic Comment: asymyptomatic (3) 39 weeks gestation of Status: Resolved (4) Spontaneous rupture of membranes Status: Resolved (5) Arrest of dilation, delivered, current hospitalization Status: Resolved Core Measure Documentation - Palliative Care Palliative Care/ Comfort Measures: Not Applicable - Core Measures Any of the following diagnoses?: none Exam - Constitutional Vitals: Temp Pulse Resp BP Pulse Ox 97.7 F 95 H 18 102/47 100 06/27/20 07:47 06/27/20 07:47 06/27/20 07:47 06/27/20 07:47 06/27/20 07:47 General appearance: Present: no acute distress - Neck Neck: Present: supple - Respiratory Respiratory effort: normal - Cardiovascular Rhythm: regular - Extremities Extremities: no ischemia, No edema - Abdominal General gastrointestinal: Present: soft, non-tender - Integumentary Integumentary: Present: clear, warm, dry (Incision: c/d/i, no s/s infection) - Psychiatric Psychiatric: appropriate mood/affect, intact judgment & insight, memory intact, cooperative - Neurologic Neurologic: CNII-XII intact Plan Activity: other (No sex, no driving, ambulate ~1mile on your property a day. ) Weight Bearing Status: Full Weight Bearing Diet: regular Wound: open to air, keep clean and dry Special Instructions: no heavy lifting (Greater than 15lbs) Additional Instructions: Call the office tomorrow to schedule your postoperative evaluation and if desired circumcision Follow up with: OLESYA SMALLS MD [Primary Care Provider] - 7 Days Prescriptions: Lidocain2.5%/Prilocai2.5% [Emla] 5 gm TP ONCE #1 tube Ferrous Sulfate [Feosol 325 MG tab] 325 mg PO BID 1 Days #90 tablet Ibuprofen [Motrin 800 MG tab] 800 mg PO TID PRN #30 tablet PRN Reason: Pain oxyCODONE /ACETAMINOPHEN [Percocet 5/325 mg] 1 - 2 tab PO Q4HR PRN #14 tablet PRN Reason: Pain
[2020-06-27 13:36] VITALS: BP 106/70
== END 2020-06-27 01:55 | disposition home or self-care (01) | DRG 765 ==
LOC: TRG 07:58 → APU 07:59 → LD 08:00 → TRG 08:36 → OB 06-25 06:47
PROVIDERS: ADMIT Obstetrics & Gynecology; ATTEND Obstetrics & Gynecology
PROC: 10D00Z1 Extraction of Products of Conception, Low, Open Approach (ICD-10-PCS; principal; 2020-06-25)
PROC: 3E0R3BZ Introduction of Anesthetic Agent into Spinal Canal, Percutaneous Approach (ICD-10-PCS; 2020-06-25)
PROC: 3E0234Z Introduction of Serum, Toxoid and Vaccine into Muscle, Percutaneous Approach (ICD-10-PCS; 2020-06-26)
DX: O77.0 Labor and delivery complicated by meconium in amniotic fluid (principal); D62 Acute posthemorrhagic anemia; O76 Abnormality in fetal heart rate and rhythm complicating labor and delivery; O69.81X0 Labor and delivery complicated by cord around neck, without compression, not applicable or unspecified; Z20.822 Contact with and (suspected) exposure to COVID-19; O62.0 Primary inadequate contractions; O99.214 Obesity complicating childbirth; E66.9 Obesity, unspecified; O99.02 Anemia complicating childbirth; Z3A.39 39 weeks gestation of pregnancy; Z37.0 Single live birth; Z23 Encounter for immunization
CPT/HCPCS: 36415; 85014; 85018; 85027; 86592; 86850; 86900; 86901; G0378; J0290; J0690; J1100; J1885; J2270; J2405; J2590; J2765; J3010; J7121; U0003